=== PATIENT | female | born 1950 | race Caucasian/White ===

== ENCOUNTER 2020-04-28 12:29 | Emergency (ER) | payer OTHER ==
[~2020-04-28] VITALS: Ht 160 cm; Wt 45.8 kg
[~2020-04-28 12:29] MED LIST: CRESTOR20 MG PO; NEXIUM20 MG/PACK PO; PEPCID20 MG PO; PLAVIX75 MG PO; PROVENTIL S1 ML/5 MG IH; PROVENTIL3 ML/2.5 M IH; SINGULAIR 10MG10 MG PO; SYNTHROID50 MCG PO; SYNTHROID88 MCG PO; TRILIPIX45 MG PO; ULTRACET PO; VYTORIN 10-40 M1 TAB PO; [UNRECOGNIZED DRUG - OTHER]
== END 2020-04-28 21:12 | disposition home or self-care (01) ==
LOC: ER 12:29
DX: K59.09 Other constipation (principal); R10.31 Right lower quadrant pain

== ENCOUNTER 2020-06-16 05:30 | Day surgery (SDC) | payer OTHER | END 2020-06-16 11:00 | disposition home or self-care (01) | LOC: AMB-ENDOS 05:30 | PROVIDERS: ATTEND Internal Medicine Gastroenterology | DX: K62.4 Stenosis of anus and rectum (principal); Z20.822 Contact with and (suspected) exposure to COVID-19 ==